=== PATIENT | male | born 1970 | race Caucasian/White ===

== ENCOUNTER 2017-11-06 14:49 | Emergency (ER) | payer MEDICAID ==
[~2017-11-06] VITALS: Ht 170.2 cm; Wt 92.5 kg
[2017-11-06 14:59] VITALS: Ht 170.2 cm; Wt 92.5 kg
[2017-11-06 15:15] VITALS: BP 141/93
== END 2017-11-06 16:40 | disposition home or self-care (01) ==
LOC: ED 14:49
DX: S01.511A Laceration without foreign body of lip, initial encounter (principal); W04.XXXA Fall while being carried or supported by other persons, initial encounter; Y93.89 Activity, other specified; Y92.89 Other specified places as the place of occurrence of the external cause; Y99.8 Other external cause status
CPT/HCPCS: 90715; J2001

== ENCOUNTER 2017-11-09 16:09 | Emergency (ER) | payer MEDICAID ==
[~2017-11-09] VITALS: Ht 170.2 cm; Wt 91.6 kg
[2017-11-09 16:21] VITALS: Ht 170.2 cm; Wt 91.6 kg
[2017-11-09 17:47] VITALS: BP 136/79
== END 2017-11-09 17:45 | disposition home or self-care (01) ==
LOC: ED 16:09
DX: S01.511D Laceration without foreign body of lip, subsequent encounter (principal); X58.XXXD Exposure to other specified factors, subsequent encounter

== ENCOUNTER 2017-11-12 17:25 | Emergency (ER) | payer MEDICAID ==
[~2017-11-12] VITALS: Ht 170.2 cm; Wt 93.0 kg
[2017-11-12 17:27] VITALS: Ht 170.2 cm; Wt 93.0 kg
[2017-11-12 18:27] VITALS: BP 119/71
== END 2017-11-12 18:27 | disposition home or self-care (01) ==
LOC: ED 17:25
DX: S01.511D Laceration without foreign body of lip, subsequent encounter (principal); X58.XXXD Exposure to other specified factors, subsequent encounter

== ENCOUNTER 2018-02-27 19:05 | Emergency (ER) | payer MEDICAID ==
[~2018-02-27] VITALS: Ht 172.7 cm; Wt 85.3 kg
[2018-02-27 19:34] VITALS: Ht 172.7 cm; Wt 85.3 kg
[2018-02-27 21:08] LABS: BASOPHIL % 0.3 % (0-2); PLATELET COUNT 354 x10^3mcL (130-400); RED CELL DISTRIBUTION WIDTH 13.3 % (11.5-14.5)
[2018-02-27 21:10] LABS: CALCIUM 8.1 mg/dL (8.5-10.1); CARBON DIOXIDE 27.9 mmol/L (21-32); CHLORIDE SERUM 103 mmol/L (98-107); GFR1 > 60 mL/min; GLUCOSE SERUM 101 mg/dL (74-106); POTASSIUM SERUM 3.7 mmol/L (3.5-5.1); SODIUM SERUM 140 mmol/L (136-145)
[2018-02-27 21:16] LABS: ALKALINE PHOSPHATASE 104 U/L (46-116); ALT/SGPT 18 U/L (16-63); AST/SGOT 9 U/L (15-37); BILIRUBIN TOTAL 0.41 mg/dL (0.20-1.00); LIPASE 62 IU/L (73-393); TOTAL PROTEIN, SERUM 7.5 g/dL (6.4-8.2)
[2018-02-27 21:19] LABS: ALBUMIN 3.2 g/dL (3.4-5.0)
[2018-02-27 22:13] VITALS: BP 124/66
== END 2018-02-27 22:13 | disposition home or self-care (01) ==
LOC: ED 19:05
PROVIDERS: Emergency Medicine
DX: K52.9 Noninfective gastroenteritis and colitis, unspecified (principal); E86.0 Dehydration
CPT/HCPCS: J2405; J7030